=== PATIENT | female | born 1975 | race African-American/Black ===

== ENCOUNTER 2018-09-24 14:35 | Emergency (ER) | payer OTHER ==
[2018-09-24 14:39] VITALS: BP 141/69; PULSE 79; TEMP 98.5; BMI 37.1
--- NOTE | 2018-09-24 14:39 | PDOC ---
Rapid Medical Evaluation Chief Complaint: Abscess Boil Time Seen by Provider: 09/24/18 14:37 Medical Evaluation: 09/24/18 14:38 This patient had a brief in-person evaluation by me. cc: abscess to right breast x 4 days complaining of pain at site denies fever or chills PE: NAD even and unlabored breathing right breast with erythematous, indurated area Orders: none This patient will proceed to Ed for further evaluation Discharge Disposition - Diagnosis Breast abscess - Referrals - Patient Instructions - Post Discharge Activity
--- NOTE | 2018-09-24 15:10 | PROC ---
Incision and Drainage Risks and Benefits Explained: Yes Consent on Chart: Yes Betadine cleansed: Yes Anesthesia: 1% Lidocaine Blade Size: 15 Drainage: 2ml of foul erica greco green purulent material Irrigated with Normal Saline: Yes Iodinated Packin/2 in Plain packing: No Sterile Dressing Applied: Yes - Remarks Remarks: anesthesia applied to the site 1cm crucate incision was made at the point of maximum fluctuance.
--- NOTE | 2018-09-24 15:10 | CONSULT ---
Consult Consult Specialty:: General Surgery Reason for Consultation:: right breast abscess - History of Present Illness Chief Complaint: right breast abscess History of Present Illness: 42yo female no significant PMH presented to the ED reporting 2-3 days of worsening pain in the right breast. She is not certain how it started. denies insect bite or trauma. She has had a abscess previously on the left breast. pain is rated 10/10 and she has not been able to sleep. She has taken motrin without relief. She doesnt have a history of hidradenitis. We were asked to assess and treat. - History Source History Provided By: Patient, Medical Record Limitations to Obtaining History: No Limitations - Alcohol/Substance Use Hx Alcohol Use: No - Smoking History Smoking history: Never smoked Home Medications - Allergies Allergies/Adverse Reactions: Allergies Allergy/AdvReac Type Severity Reaction Status Date / Time No Known Allergies Allergy Verified 09/24/18 14:39 - Home Medications Home Medications: Ambulatory Orders Amox-Tr/K Cl [Augmentin - 875Mg Tablet] 1 tab PO BID #14 tablet 09/24/18 Fluconazole [Diflucan] 150 mg PO ONCE #1 tablet 09/24/18 Oxycodone HCl/Acetaminophen [Percocet 5/325 -] 1 tab PO Q6H #40 tab MDD 5 Review of Systems - Review of Systems Constitutional: denies: Chills, Fever Eyes: denies: Blind Spots, Recent Change in Vision HENT: denies: Difficult Swallowing, Throat Pain Neck: denies: Pain on Movement, Tenderness Cardiovascular: denies: Chest Pain, Palpitations Respiratory: denies: Cough, SOB Gastrointestinal: denies: Abdominal Pain, Bloating, Constipation, Diarrhea, Melena Genitourinary: denies: Burning, Discharge, Dysuria Breasts: reports: See HPI, Pain Musculoskeletal: denies: Back Pain, Decreased ROM, Muscle Pain Integumentary: denies: Eczema, Rash Neurological: denies: Seizure, Syncope Endocrine: denies: Unexplained Weight Gain, Unexplained Weight Loss Hematology/Lymphatic: denies: Easily Bruised, Excessive Bleeding Psychiatric: denies: Anxiety, Depression Physical Exam Vital Signs: Vital Signs Temperature 98.5 F 09/24/18 14:37 Pulse Rate 79 09/24/18 14:37 Respiratory Rate 18 09/24/18 14:37 Blood Pressure 141/69 09/24/18 14:37 O2 Sat by Pulse Oximetry (%) 100 09/24/18 14:37 Constitutional: Yes: Well Nourished, No Distress, Calm Eyes: Yes: Conjunctiva Clear, EOM Intact HENT: Yes: Atraumatic, Normocephalic Neck: Yes: Supple, Trachea Midline Cardiovascular: Yes: Regular Rate and Rhythm, S1, S2 Respiratory: Yes: Regular, CTA Bilaterally Gastrointestinal: Yes: Normal Bowel Sounds, Soft. No: Tenderness ...Rectal Exam: Yes: Deferred Renal/: No: CVA Tenderness - Left, CVA Tenderness - Right Breast(s): Yes: Left, Skin Changes (left breast upper inner quadrant superfical tender 2X2 area of erythema and flucturance.) Musculoskeletal: No: Joint Swelling, Muscle Weakness Extremities: No: Cool, Cyanosis Edema: No Peripheral Pulses WNL: Yes Integumentary: No: Jaundice, Rash Wound/Incision: Yes: Reddened Neurological: Yes: Alert, Oriented Psychiatric: Yes: Alert, Oriented Problem List - Problems (1) Abscess of skin of breast Assessment/Plan: 42 yo female with right breast abscess Bedside incision and drainage of right breast abscess with local Discussed with patient risks, benefits and alternatives of the aforementioned procedure, including but not limited to bleeding, infection, injury to adjacent structures, need for further procedures, ; alternatives include antibiotics , delayed or no surgery - risks of this include failure of nonoperative therapy , sepsis, recurrence, . Patient desires to proceed with operation - will take to OR for above. Informed consent signed for same. Code(s): N61.1 - ABSCESS OF THE BREAST AND NIPPLE (2) Breast abscess Code(s): N61.1 - ABSCESS OF THE BREAST AND NIPPLE (3) Pain of left breast Code(s): N64.4 - MASTODYNIA
--- NOTE | 2018-09-24 15:10 | DS ---
Physical Examination Vital Signs: Vital Signs Temperature 98.5 F 09/24/18 14:37 Pulse Rate 79 09/24/18 14:37 Respiratory Rate 18 09/24/18 14:37 Blood Pressure 141/69 09/24/18 14:37 O2 Sat by Pulse Oximetry (%) 100 09/24/18 14:37 Findings/Remarks: stable post procedure Constitutional: Yes: Well Nourished, No Distress, Calm Eyes: Yes: Conjunctiva Clear, EOM Intact HENT: Yes: Atraumatic, Normocephalic Neck: Yes: Supple, Trachea Midline Cardiovascular: Yes: Regular Rate and Rhythm, S1, S2 Respiratory: Yes: Regular, CTA Bilaterally Gastrointestinal: Yes: Normal Bowel Sounds, Soft. No: Tenderness ...Rectal Exam: Yes: Deferred Renal/: No: CVA Tenderness - Left, CVA Tenderness - Right Breast(s): Yes: Skin Changes (erythema). No: Nipple Inversion Musculoskeletal: No: Muscle Pain, Muscle Weakness Extremities: No: Cool, Cyanosis Edema: No Peripheral Pulses WNL: Yes Peripheral Pulses: Left Radial: 2+, Right Radial: 2+, Left Doralis Pedis: 2+, Right Dorsalis Pedis: 2+, Left Femoral: 2+, Right Femoral: 2+ Integumentary: No: Incision, Jaundice, Skin Tear Wound/Incision: Yes: Clean/Dry, Well Approximated, Dressing Dry and Intact Neurological: Yes: Alert, Oriented Psychiatric: Yes: Alert, Oriented Discharge Summary Reason For Visit: ABSCESS Current Active Problems Breast abscess (Acute) Procedures: Principal: Incision and Drainage of right breast abscess Hospital Course: presented to ED bedside procedure perfromed discharged home Condition: Improved - Instructions Diet, Activity, Other Instructions: Postoperative instructions: You had an incision and drainage of right breast abscess on 09/24/[address] Erik Fisher of [facility]. Activity: Resume your usual activities gradually, but no heavy exertion or lifting more than 10-15 pounds for 4-6 weeks. Remove dressings 48 hours after surgery, if they are not already off. You may shower daily starting then, just pat the incision areas dry. No bath or swimming until skin incisions have healed. Yesi should not need to be recovered with any dressings, unless you have been told otherwise. Eat lightly at first, but advance to your usual diet as tolerated. Pain: For pain, you may use and alternate Tylenol (acetaminophen) 1-2 pills and/ or ibuprofen 200 mg (1-3 pills) every 6 hours each as needed; this means that you can take one OR the other at 3-hour intervals. If you are prescribed a Tylenol/narcotic combination for severe pain, use it instead of plain Tylenol as needed and switch back when your pain starts decreasing. Do not take more than 4000 mg of acetaminophen in a day. Take medications as prescribed or indicated on the labeling. Follow-up: Call Dr. Fisher' office at [phone] to make your postop appointment (Monday09/26/2018 after surgery as advised). Clinic is held in the [facility] on the first floor of [facility]. Call the office if you have: * increasing pain not responsive to pain medication * fever of 101F or higher * vomiting * unusual or increasing bleeding or drainage from wounds * increasing redness or swelling at wound sites * inability to urinate Also, see your primary medical doctor within 1-2 weeks. Referrals: Castillo Sykes [Primary Care Provider] - Disposition: HOME
== END 2018-09-24 15:24 | disposition home or self-care (01) ==
LOC: JERFT 14:35
PROC: 0H9T0ZZ Drainage of Right Breast, Open Approach (ICD-10-PCS; principal; 2018-09-24)
PROC: 3E023BZ Introduction of Anesthetic Agent into Muscle, Percutaneous Approach (ICD-10-PCS; 2018-09-24)
DX: N61.1 Abscess of the breast and nipple (principal)
CPT/HCPCS: 87070; 87076; 87077; 87205; 99281-25

== ENCOUNTER 2019-03-19 09:35 | Emergency (ER) | payer OTHER ==
[2019-03-19 10:03] VITALS: BP 122/65; BMI 36.3
[2019-03-19] MEDS ORDERED: IBUPROFEN 600 MG TABLET (FP) PO ONE ×2 (10:16→10:18)
--- NOTE | 2019-03-19 11:11 | PDOC ---
History of Present Illness - General Chief Complaint: Cold Symptoms Stated Complaint: Cold Symptoms Time Seen by Provider: 03/19/19 09:57 History Source: Patient Exam Limitations: No Limitations - History of Present Illness Initial Comments: 03/19/19 10:11 43-year-old female presents to ED with myalgia, headache, sore throat and dry cough for the past 3 days. 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 Patient denies smoking history But states history of diabetes and hypertension. Is this a multiple visit Asthma Patient?: No Timing/Duration: reports: other Severity: reports: mild, moderate Possible Cause: Yes: other Modifying Factors: improves with: coughing Associated Symptoms: reports: cough, fever/chills, headache, sore throat Past History - Travel Traveled outside of the country in the last 30 days: No Close contact w/someone who was outside of country & ill: No - Past Medical History Allergies/Adverse Reactions: Allergies Allergy/AdvReac Type Severity Reaction Status Date / Time No Known Allergies Allergy Verified 03/19/19 09:50 Home Medications: Ambulatory Orders Losartan Potassium [Cozaar -] 12.5 mg PO DAILY 03/19/19 Oseltamivir Phosphate [Tamiflu -] 75 mg PO BID #10 capsule 03/19/19 Semaglutide [Ozempic] 0.5 mg SQ WEEKLY 03/19/19 COPD: No Diabetes: Yes (IDDM) HTN: Yes - Immunization History Immunization Up to Date: Yes - Psycho Social/Smoking Cessation Hx Smoking History: Never smoked Hx Alcohol Use: No Drug/Substance Use Hx: No Review of Systems - Review of Systems Able to Perform ROS?: Yes Constitutional: Yes: Chills, Fever, Weakness HEENTM: Yes: Throat Pain Respiratory: Yes: Cough Cardiac (ROS): No: Symptoms Reported ABD/GI: No: Symptoms Reported : No: Symptoms Reported Musculoskeletal: No: Symptoms Reported Integumentary: No: Symptoms Reported Neurological: No: Symptoms reported *Physical Exam - Vital Signs Last Vital Signs Temp Pulse Resp BP Pulse Ox 101.5 F H 145 H 18 122/65 99 03/19/19 09:50 03/19/19 09:50 03/19/19 09:50 03/19/19 09:50 03/19/19 09:50 - Physical Exam General Appearance: Yes: Nourished, Appropriately Dressed. No: Apparent Distress HEENT: positive: EOMI, Pharyngeal Erythema, Tonsillar Erythema. negative: Tonsillar Exudate Neck: positive: Supple Respiratory/Chest: positive: Lungs Clear, Normal Breath Sounds. negative: Respiratory Distress, Accessory Muscle Use Cardiovascular: positive: Regular Rhythm, Tachycardia. negative: Murmur Extremity: positive: Normal Inspection Integumentary: positive: Normal Color, Warm, Moist Neurologic: positive: Motor Strength 5/5 (Ambulatory) ED Treatment Course - Medications Given in the ED: ED Medications Discontinued Medications Generic Name Dose Route Start Last Admin Trade Name Freq PRN Reason Stop Dose Admin Ibuprofen 600 mg 03/19/19 10:18 03/19/19 10:20 Motrin - PO 03/19/19 10:19 600 mg ONCE ONE Administration Medical Decision Making - Medical Decision Making 03/19/19 11:00 Chief complaint: URI symptoms for the past 3 days. 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 Patient history of diabetes. Exam: Tachycardic febrile with erythema to the posterior palate and tonsillar region lungs clear to auscultation. Plan: Motrin rapid strep and influenza collected 03/19/19 11:14 Laboratory Tests 03/19/19 03/19/19 10:28 10:28 Influenza A (Rapid) Negative Influenza B (Rapid) Positive A Group A Strep Rapid Negative Patient ordered for Tamiflu and given supportive care instructions. Discharge - Discharge Information Problems reviewed: Yes Clinical Impression/Diagnosis: Influenza B Condition: Good Disposition: HOME - Follow up/Referral - Patient Discharge Instructions Patient Printed Discharge Instructions: DI for Influenza -- Adult Additional Instructions: Drink plenty of fluids, rest, take Motrin or Tylenol every 6-8 hours for adequate fever and pain control. Take Tamiflu as prescribed. Cover mouth when coughing and wash hands frequently - Post Discharge Activity
[2019-03-19 11:55] VITALS: PULSE 123; TEMP 100.1
== END 2019-03-19 11:56 | disposition home or self-care (01) ==
LOC: JER 09:35
DX: J10.1 Influenza due to other identified influenza virus with other respiratory manifestations (principal)
CPT/HCPCS: 87070; 87804; 87880; 99283-25